=== PATIENT | male | born 1940 | race Caucasian/White ===

== ENCOUNTER 2016-10-02 10:50 | Day surgery (SDC) | payer OTHER ==
[2016-09-28 10:39] VITALS: BMI 29.7
[2016-10-02 11:22] VITALS: TEMP 97.8
[2016-10-02] MEDS ORDERED: PROPOFOL 20 ML ONE (12:04)
[2016-10-02 13:24] VITALS: BP 130/79
[2016-10-02 13:25] VITALS: PULSE 63
== END 2016-10-02 13:20 | disposition home or self-care (01) ==
LOC: FASU-ENDO 10:50
PROVIDERS: ATTEND Internal Medicine Gastroenterology
PROC: 0DJD8ZZ Inspection of Lower Intestinal Tract, Via Natural or Artificial Opening Endoscopic (ICD-10-PCS; principal; 2016-10-02 12:26)
DX: Z12.11 Encounter for screening for malignant neoplasm of colon (principal); Z80.0 Family history of malignant neoplasm of digestive organs; K57.30 Diverticulosis of large intestine without perforation or abscess without bleeding